=== PATIENT | female | born 1965 | race Caucasian/White ===

== ENCOUNTER → 2016-10-14 | Outpatient (CLI) | payer OTHER ==
--- NOTE | 2016-10-14 15:53 | KCIC ---
PROCEDURE MRI lumbar spine without contrast. HISTORY Low back pain and right radiculopathy. Right leg numbness and weakness. TECHNIQUE Sagittal T1, sagittal T2, sagittal STIR, axial T1, and axial T2 sequences are provided. COMPARISON None. FINDINGS There is no malalignment. There is no marrow edema. There is no worrisome marrow lesion. There is disc desiccation most notably at L4-L5 and L1-L2. Disc height is relatively maintained. The conus medullaris is normal in signal intensity and in position. Subcutaneous edema is noted. Probable cyst in the left kidney measures 12 millimeters. The numbering system assumes 5 lumbar type vertebral bodies. Findings by individual level are as follows: T12-L1: There is a mild disc bulge without canal or foraminal compromise. L1-L2: There is a minimal disc bulge without canal or foraminal compromise. L2-L3: There is minimal facet hypertrophy without canal or foraminal compromise. L3-L4: There is minimal facet hypertrophy, greater on the right. There is no canal or foraminal compromise. L4-L5: Minimal disc bulge is noted without canal or foraminal compromise. L5-S1: Minimal disc bulge and facet hypertrophy are noted without canal or foraminal compromise. IMPRESSION There is minimal degenerative disc disease and facet hypertrophy in the lumbar spine. There is no disc herniation. There is no high-grade canal or foraminal compromise at any level. Electronically signed by: Daron Villela MD (Oct 14, 2016 15:52:25)
== END | disposition home or self-care (01) ==
LOC: KCIC MRI 14:22
PROVIDERS: ATTEND Family Medicine
DX: M51.36 Other intervertebral disc degeneration, lumbar region (principal)
CPT/HCPCS: 72148